=== PATIENT | male | born 1975 | race Caucasian/White ===

== ENCOUNTER 2017-05-10 04:20 | Emergency (ER) | payer BC ==
[~2017-05-10] VITALS: Ht 190.5 cm; Wt 127.0 kg
[~2017-05-10 04:20] MED LIST: NAPROSYN500 MG OR; NO HOME MEDS; PENICILLN VK500 MG OR
[2017-05-10 05:52] LABS: URINE BILIRUBIN - DIPSTICK NEGATIVE (NEGATIVE); URINE BLOOD DIPSTICK NEGATIVE (NEGATIVE); URINE CLARITY CLEAR; URINE COLOR YELLOW; URINE GLUCOSE - DIPSTICK NEGATIVE (NEGATIVE); URINE KETONE NEGATIVE (NEGATIVE); URINE LEUK ESTERASE NEGATIVE (Negative); URINE NITRITE - DIPSTICK NEGATIVE (Negative); URINE PH 5.5 (4.5-8.0); URINE PROTEIN - DIPSTICK NEGATIVE (NEG-TRACE); URINE UROBILINOGEN - DIPSTICK 0.2 E.U./dL (0.2)
[2017-05-10 05:55] LABS: BARBITURATES NEGATIVE (NEGATIVE); COCAINE NEGATIVE (NEGATIVE); METHADONE NEGATIVE (NEGATIVE); OXCYCODONE NEGATIVE (NEGATIVE); TETRAHYDROCANNABIONOL NEGATIVE (NEGATIVE); TRICYLIC ANTIDEPRESSANTS NEGATIVE (NEGATIVE)
[2017-05-10 05:57] LABS: HEMATOCRIT 44.7 % (39.0-50.0); HEMOGLOBIN 15.8 g/dl (14.0-18.0); IMMATURE GRANULOCYTES 0.9 % (0.0-1.0); MEAN CELL VOLUME 94.3 fL CALC (80.0-100.0); MEAN CORPUSCULAR HGB 33.3 pG CALC (26.0-32.0); MEAN CORPUSCULAR HGB CONC 35.3 g/L CALC (32.0-36.0); NEUT# 12.84 thou/uL (1.82-7.42); RED BLOOD COUNT 4.74 mill/uL (4.70-6.10); RED CELL DISTRI WIDTH 12.3 % (11.5-15.5)
[2017-05-10 06:03] LABS: ACT PARTIAL THROMBO TIME 23.9 SECONDS (20.0-32.5); ALBUMIN 4.6 g/dL (3.2-5.0); ALKALINE PHOSPHATASE 86 u/l (38-126); ANION GAP 23 (6-22 (CALC)); BILIRUBIN, TOTAL 0.7 mg/dL (0.0-1.4); BUN 19 mg/dL (9-20); BUN/CREATININE RATIO 19 (12-20 (CALC)); CARBON DIOXIDE 17 mmol/l (22-30); CHLORIDE 111 mmol/l (95-108); ETHYL ALCOHOL 154 mg/dl (0-30); GFR > 60 ML/MIN (>=60 (CALC)); GFR FOR AFR.AMER. > 60 ML/MIN (>=60 (CALC)); GLUCOSE 105 mg/dL (75-110); POTASSIUM 4.8 mmol/l (3.5-5.1); PROTHROMBIN TIME 11.2 SECONDS (9.0-12.5); SGOT/AST 34 u/l (17-59); SGPT/ALT 37 u/l (21-72); SODIUM 146 mmol/l (137-146); TOTAL PROTEIN 7.8 g/dL (6.3-8.2)
[2017-05-10 06:35] VITALS: BP 128/78
== END 2017-05-10 06:35 | disposition home or self-care (01) | DRG 897 ==
LOC: ED 04:20
PROVIDERS: Emergency Medicine
DX: F10.129 Alcohol abuse with intoxication, unspecified (principal); S00.31XA Abrasion of nose, initial encounter; Y90.6 Blood alcohol level of 120-199 mg/100 ml; S00.81XA Abrasion of other part of head, initial encounter; S00.412A Abrasion of left ear, initial encounter; S00.411A Abrasion of right ear, initial encounter; Z72.0 Tobacco use; Y04.8XXA Assault by other bodily force, initial encounter

== ENCOUNTER 2017-05-12 13:10 | Emergency (ER) | payer BC ==
[~2017-05-12] VITALS: Ht 190.5 cm; Wt 127.0 kg
[2017-05-12 14:13] VITALS: BP 136/94
[2017-05-12 14:18] LABS: HEMATOCRIT 43.2 % (39.0-50.0); HEMOGLOBIN 14.9 g/dl (14.0-18.0); IMMATURE GRANULOCYTES 0.4 % (0.0-1.0); MEAN CELL VOLUME 94.7 fL CALC (80.0-100.0); MEAN CORPUSCULAR HGB 32.7 pG CALC (26.0-32.0); MEAN CORPUSCULAR HGB CONC 34.5 g/L CALC (32.0-36.0); NEUT# 5.77 thou/uL (1.82-7.42); RED BLOOD COUNT 4.56 mill/uL (4.70-6.10); RED CELL DISTRI WIDTH 12.1 % (11.5-15.5)
[2017-05-12 14:21] LABS: URINE BILIRUBIN - DIPSTICK NEGATIVE (NEGATIVE); URINE BLOOD DIPSTICK NEGATIVE (NEGATIVE); URINE CLARITY CLEAR; URINE COLOR YELLOW; URINE GLUCOSE - DIPSTICK NEGATIVE (NEGATIVE); URINE KETONE NEGATIVE (NEGATIVE); URINE LEUK ESTERASE NEGATIVE (NEGATIVE); URINE NITRITE - DIPSTICK NEGATIVE (Negative); URINE PROTEIN - DIPSTICK NEGATIVE (NEG-TRACE)
[2017-05-12 14:26] LABS: BARBITURATES NEGATIVE (NEGATIVE); COCAINE NEGATIVE (NEGATIVE); METHADONE NEGATIVE (NEGATIVE); OXCYCODONE NEGATIVE (NEGATIVE); TETRAHYDROCANNABIONOL NEGATIVE (NEGATIVE); TRICYLIC ANTIDEPRESSANTS NEGATIVE (NEGATIVE)
[2017-05-12 14:28] LABS: ALBUMIN 3.9 g/dL (3.2-5.0); ALKALINE PHOSPHATASE 61 u/l (38-126); ANION GAP 15 (6-22 (CALC)); BILIRUBIN, TOTAL 0.8 mg/dL (0.0-1.4); BUN 22 mg/dL (9-20); BUN/CREATININE RATIO 22 (12-20 (CALC)); CALCIUM 9.3 mg/dL (8.4-10.2); CARBON DIOXIDE 25 mmol/l (22-30); CHLORIDE 111 mmol/l (95-108); GFR > 60 ML/MIN (>=60 (CALC)); GFR FOR AFR.AMER. > 60 ML/MIN (>=60 (CALC)); GLUCOSE 91 mg/dL (75-110); POTASSIUM 4.4 mmol/l (3.5-5.1); SGOT/AST 18 u/l (17-59); SGPT/ALT 35 u/l (21-72); SODIUM 146 mmol/l (137-146); TOTAL PROTEIN 6.7 g/dL (6.3-8.2)
[2017-05-12] MEDS ORDERED: ULTRAM50 M1 PO (14:32)
== END 2017-05-12 14:40 | disposition home or self-care (01) | DRG 950 ==
LOC: ED 13:10
PROVIDERS: Emergency Medicine
DX: S00.93XD Contusion of unspecified part of head, subsequent encounter (principal); F17.210 Nicotine dependence, cigarettes, uncomplicated; R42 Dizziness and giddiness; R41.0 Disorientation, unspecified; Y04.2XXD Assault by strike against or bumped into by another person, subsequent encounter

== ENCOUNTER 2022-06-29 20:53 | Emergency (ER) | payer BC ==
[~2022-06-29] VITALS: Ht 190.5 cm; Wt 131.8 kg
[~2022-06-29 20:53] MED LIST changes: +ULTRAM50 M1 PO
[2022-06-29 21:00] VITALS: BP 117/87
[2022-06-29 21:30] VITALS: BP 131/85
[2022-06-29] MEDS ORDERED: NAPROXEN500 MG PO (21:30)
[2022-06-29] MEDS ORDERED: KEFLEX500 MG PO (21:30)
[2022-06-29 22:43] VITALS: BP 128/75
[2022-06-29 23:00] VITALS: BP 106/68
[2022-06-29 23:30] VITALS: BP 102/55
== END 2022-06-29 21:40 | disposition home or self-care (01) | DRG 605 ==
LOC: ED 20:53
DX: S91.331A Puncture wound without foreign body, right foot, initial encounter (principal); W45.0XXA Nail entering through skin, initial encounter; S93.401A Sprain of unspecified ligament of right ankle, initial encounter; X50.1XXA Overexertion from prolonged static or awkward postures, initial encounter

== ENCOUNTER 2022-09-16 09:49 | Emergency (ER) | payer BC ==
[~2022-09-16] VITALS: Ht 190.5 cm; Wt 113.0 kg
[2022-09-16] VITALS (7 sets, daily range): BP systolic 127–153; BP diastolic 89–109
[~2022-09-16 09:49] MED LIST changes: +KEFLEX500 MG PO; +NAPROXEN500 MG PO
[2022-09-16 10:11] LABS: BASO% 0.5 % (0-3); EOS% 2.4 % (0-8); HEMATOCRIT 44.3 % (39.0-50.0); HEMOGLOBIN 14.8 g/dl (14.0-18.0); IMMATURE GRANULOCYTES 0.6 % (0.0-5.0); LYMPH% 20.1 % (15-41); MEAN CELL VOLUME 93.1 fL CALC (80.0-100.0); MEAN CORPUSCULAR HGB 31.1 pG CALC (26.0-32.0); MEAN CORPUSCULAR HGB CONC 33.4 g/dL CAL (32.0-36.0); MONO% 7.3 % (2-13); NEUT# 7.89 thou/uL (1.82-7.42); NEUT% 69.1 % (42-76); RED BLOOD COUNT 4.76 mill/uL (4.70-6.10); RED CELL DISTRI WIDTH 12.3 % (11.5-15.5)
[2022-09-16 10:31] LABS: ALBUMIN 4.5 g/dL (3.2-5.0); ALKALINE PHOSPHATASE 87 u/l (38-126); ANION GAP 9 (6-22 (CALC)); BUN 17 mg/dL (9-20); BUN/CREATININE RATIO 17 (12-20 (CALC)); CARBON DIOXIDE 29 mmol/l (22-30); CHLORIDE 108 mmol/l (95-108); GFR FOR AFR.AMER. > 60 ML/MIN (>=60 (CALC)); GFR OTHER RACES > 60 ML/MIN (>=60 (CALC)); POTASSIUM 4.2 mmol/l (3.5-5.1); SGOT/AST 30 u/l (17-59); SODIUM 141 mmol/l (137-146); TOTAL PROTEIN 7.5 g/dL (6.3-8.2)
[2022-09-16 10:32] LABS: BILIRUBIN, TOTAL 0.2 mg/dL (0.2-1.3)
== END 2022-09-16 12:42 | disposition home or self-care (01) | DRG 103 ==
LOC: ED 09:49
PROVIDERS: Family Medicine
DX: R51.9 Headache, unspecified (principal); R07.89 Other chest pain; F17.210 Nicotine dependence, cigarettes, uncomplicated